=== PATIENT | female | born 1985 | race Caucasian/White ===

== ENCOUNTER 2017-01-23 20:57 | Emergency (ER) | payer OTHER ==
[2017-01-24 00:48] LABS: Hematocrit 41 % (35-47); Hemoglobin 13.8 g/dl (12.0-16.0); Mean Corpuscular HGB Conc 34 g/dl (31-36); Mean Corpuscular Hemoglobin 30 pg (27-31); Mean Corpuscular Volume 87 fL (80-97); Mean Platelet Volume 8 um3 (7.4-10.4); Red Blood Count 4.68 10^6/ul (4.0-5.4); Red Cell Distribution Width 14 % (10.5-15); White Blood Count 12.1 10^3/ul (3.5-10.8)
--- NOTE | 2017-01-24 00:51 | ED ---
I, Oh,Funmilayo, scribed for Stuart Dillon MD on 01/24/17 at 0015 . Throat Pain/Nasal Congestion - HPI Summary HPI Summary: This 32 y/o female presents to ED for sinus pain since yesterday. Positive lightheaded dizziness that is worse with sitting/standing up. Pt took some unspecified OTC "cold and cough" medications without much relief. PMHx includes recurrent sinus infection, but pt states that she hasn't had it "for a few years ". - History of Current Complaint Chief Complaint: EDGeneral Time Seen by Provider: 01/24/17 00:01 Hx Obtained From: Patient, Medical Records Onset/Duration: Gradual Onset Associated Signs And Symptoms: Positive: Sinus Discomfort Cough: None - Allergies/Home Medications Allergies/Adverse Reactions: Allergies Allergy/AdvReac Type Severity Reaction Status Date / Time Bupropion [From Wellbutrin] Allergy Hives Verified 01/23/17 21:04 PMH/Surg Hx/FS Hx/Imm Hx Endocrine/Hematology History: Denies: Hx Diabetes, Hx Thyroid Disease Cardiovascular History: Denies: Hx Hypertension - being monitored 140's Respiratory History: Denies: Hx Asthma, Hx Chronic Obstructive Pulmonary Disease (COPD) GI History: Denies: Hx Ulcer - Immunization History Date of Tetanus Vaccine: utd Date of Influenza Vaccine: none Infectious Disease History: No Infectious Disease History: Denies: Hx Clostridium Difficile, Hx Hepatitis, Hx Human Immunodeficiency Virus (HIV), Hx of Known/Suspected MRSA, Hx Shingles, Hx Tuberculosis, Hx Known/ Suspected VRE, Hx Known/Suspected VRSA, History Other Infectious Disease, Traveled Outside the [place] in Last 30 Days - Family History Known Family History: Positive: Cardiac Disease, Hypertension, Diabetes - Social History Alcohol Use: Rare Substance Use Type: Reports: None Smoking Status (MU): Never Smoked Tobacco Have You Smoked in the Last Year: No Review of Systems Negative: Fever Positive: Other - sinus pain Neurological: Other - Positive for dizziness All Other Systems Reviewed And Are Negative: Yes Physical Exam Triage Information Reviewed: Yes Vital Signs On Initial Exam: Initial Vitals Temp Pulse Resp BP Pulse Ox 96.7 F 84 16 132/89 98 01/23/17 21:05 01/23/17 21:05 01/23/17 21:05 01/23/17 21:05 01/23/17 21:05 Vital Signs Reviewed: Yes Appearance: Positive: Well-Appearing, No Pain Distress Skin: Positive: Warm Head/Face: Positive: Normal Head/Face Inspection Eyes: Positive: EOMI, CHAPO ENT: Positive: Hearing grossly normal Neck: Positive: Supple Respiratory/Lung Sounds: Positive: Clear to Auscultation, Breath Sounds Present Cardiovascular: Positive: RRR Abdomen Description: Positive: Nontender, Soft Bowel Sounds: Positive: Present Musculoskeletal: Positive: Strength/ROM Intact Neurological: Positive: Alert, Oriented to Person Place, Time - [place] Coma Scale Coma Scale Total: 15 Diagnostics - Vital Signs Vital Signs Temp Pulse Resp BP Pulse Ox 01/23/17 21:05 96.7 F 84 16 132/89 98 - Laboratory Result Diagrams: 01/24/17 00:27 01/24/17 00:27 Lab Statement: Any lab studies that have been ordered have been reviewed, and results considered in the medical decision making process. EENT Course/Dx - Course Assessment/Plan: This 32 y/o female presents to ED for sinus "pain" discomfort and orthostatic dizziness since yesterday. PMHx does include recurrent sinusitis that pt hasn't had for last few years. Bloodwork is unremarkable except for elevated WBC of 12.1. Pt was given pseudoephedrine tab in ED. Pt is discharged with dx of sinusitis. - Diagnoses Provider Diagnoses: Sinusitis Discharge - Discharge Plan Condition: Stable Disposition: HOME Prescriptions: Pseudoephedrine TAB* [Sudafed TAB*] 60 mg PO BID #20 tab Patient Education Materials: Sinusitis (ED), Pseudoephedrine (By mouth) Referrals: Nataliia Marcano MD [Primary Care Provider] - 2 Days The documentation as recorded by the Paul cortez Soohyun accurately reflects the service I personally performed and the decisions made by , Stuart Dillon MD.
[2017-01-24 01:03] LABS: Albumin 3.6 g/dL (3.2-5.2); BUN/Creatinine Ratio 9.6 (8-20); Calcium 9.1 mg/dL (8.6-10.3); EGFR African American 118.8 (>60); EGFR Non-African American 92.4 (>60); Globulin 3.6 g/dL (2-4); Potassium 3.9 mmol/L (3.5-5.0); Total Bilirubin 0.4 mg/dL (0.2-1.0); Total Protein 7.2 g/dL (6.4-8.9)
[2017-01-24] MEDS ORDERED: Pseudoephedrine TAB* 30 MG PO ONE (01:09)
[2017-01-24 01:37] VITALS: BP 117/67
== END 2017-01-24 01:36 | disposition home or self-care (01) ==
LOC: ED 20:57
DX: J32.9 Chronic sinusitis, unspecified (principal); R42 Dizziness and giddiness
CPT/HCPCS: 36415; 80053; 85025; 99282; A9270-GY

== ENCOUNTER 2018-10-10 20:04 | Emergency (ER) | payer OTHER ==
[2018-10-10 20:16] VITALS: BP 132/94
--- NOTE | 2018-10-10 21:25 | UC ---
Throat Pain/Nasal Lizandro HPI - HPI Summary HPI Summary: 33-year-old female presents with onset of tenderness to the bridge of her nose yesterday. Denies any injury. States she does notice some pressure when she bends over. Denies fever, chills, congestion, nasal discharge, ear pain, sore throat, or cough. - History of Current Complaint Chief Complaint: UCGeneralIllness Stated Complaint: POSSIBLE SINUS INFECTION Time Seen by Provider: 10/10/18 21:10 Hx Obtained From: Patient Hx Last Menstrual Period: 3 months Pain Intensity: 6 - Allergies/Home Medications Allergies/Adverse Reactions: Allergies Allergy/AdvReac Type Severity Reaction Status Date / Time bupropion [From Wellbutrin] Allergy Hives Verified 10/10/18 20:16 PMH/Surg Hx/FS Hx/Imm Hx Previously Healthy: Yes - Denies significant PMH - Surgical History Surgical History: None - Family History Known Family History: Positive: None, Cardiac Disease, Hypertension, Diabetes - Social History Occupation: Employed Full-time Lives: With Family Alcohol Use: Rare Substance Use Type: None Smoking Status (MU): Never Smoked Tobacco Have You Smoked in the Last Year: No - Immunization History Most Recent Influenza Vaccination: fall 2014 Review of Systems All Other Systems Reviewed And Are Negative: Yes Constitutional: Negative: Fever, Chills Skin: Negative: Rash, Bruising Eyes: Negative: Drainage, Eye Redness ENT: Negative: Sore Throat, Ear Ache, Nasal Discharge, Sinus Congestion, Sinus Pain/Tenderness Respiratory: Negative: Shortness Of Breath, Cough Cardiovascular: Negative: Palpitations, Chest Pain Gastrointestinal: Positive: Negative Genitourinary: Positive: Negative Musculoskeletal: Positive: Negative Neurological: Positive: Negative Is Patient Immunocompromised?: No Physical Exam - Summary Physical Exam Summary: GENERAL APPEARANCE: Well developed, well nourished, alert and cooperative, and appears to be in no acute distress. HEAD: Atraumatic. normocephalic. EYES: Conjunctiva clear. No drainage. EARS: External auditory canals and tympanic membranes clear, hearing grossly intact. NOSE: Mild erythema and edema of nasal mucosa. No nasal discharge. Mild tenderness over bridge of nose without erythema, ecchymosis, swelling, or deformity. No frontal or maxillary sinus tenderness. THROAT: Pharynx normal. No tonsilar inflammation, swelling, exudate, or lesions. Uvula midline. Oral cavity normal. Teeth and gingiva in good general condition. NECK: Neck supple, non-tender without lymphadenopathy. CARDIAC: Normal S1 and S2. No S3, S4 or murmurs. Rhythm is regular. There is no peripheral edema, cyanosis or pallor. Extremities are warm and well perfused. Capillary refill is less than 2 seconds. Peripheral pulses intact. LUNGS: Clear to auscultation without rales, rhonchi, wheezing or diminished breath sounds. ABDOMEN: Positive bowel sounds. Soft, nondistended, nontender. No guarding or rebound. No masses or hepatosplenomegally. MUSKULOSKELETAL: ROM intact to all extremities. No joint erythema or tenderness. Normal muscular development. Normal gait. SKIN: Skin normal color, texture and turgor with no lesions or eruptions. Triage Information Reviewed: Yes Vital Signs: Initial Vital Signs Temp 98.0 F 10/10/18 20:12 Pulse 83 10/10/18 20:12 Resp 18 10/10/18 20:12 BP 132/94 10/10/18 20:12 Pulse Ox 100 10/10/18 20:12 Vital Signs Reviewed: Yes Throat Pain/Nasal Course/Dx - Course Course Of Treatment: 33-year-old female presents with onset of tenderness to the bridge of her nose yesterday. Denies any injury. States she does notice some pressure when she bends over. Denies fever, chills, congestion, nasal discharge, ear pain, sore throat, or cough. Afebrile. Vital signs stable. Exam was overall unremarkable except for some mild tenderness with palpation over the bridge of her nose. Discussed with patient that this could represent an early sinusitis although I am not convinced that this is the cause. Recommending symptomatic treatment for sinusitis at this time. She is to return here or follow up with her primary care provider if symptoms do not improve. Anticipatory guidance and warning symptoms are reviewed with the patient. Verbalizes understanding and agrees with plan of care. - Differential Dx/Diagnosis Differential Diagnosis/HQI/PQRI: Sinusitis, URI Provider Diagnosis: Sinusitis Discharge - Sign-Out/Discharge Documenting (check all that apply): Patient Departure All imaging exams completed and their final reports reviewed: No Studies - Discharge Plan Condition: Stable Disposition: HOME Prescriptions: Fluticasone NASAL SPRAY 50MCG* [Flonase NASAL SPRAY 50MCG*] 2 spray BOTH NARES DAILY #1 btl Patient Education Materials: Sinusitis (ED) Referrals: Nataliia Marcano MD [Primary Care Provider] - 5 Days Additional Instructions: I do not see a clear cause of your symptoms although they may be from a sinus infection. Sinus infections without fever are most often caused by a viral infection. Viral infections do not respond to antibiotics and are limited to the treatment of symptoms. Viral infections typically run their course in 7-10 days. Drink plenty of fluids to avoid dehydration especially if you are running any fever. Use a saline rinse kit such as Neti Pot or NeilMed at least twice a day to help thin secretions and promote drainage of the sinuses. Use fluticasone (Flonase) nasal spray 2 sprays each nostril once daily. Take over the counter acetaminophen (Tylenol) or ibuprofen (Advil, Motrin) according to directions as needed for pain or fever. Return here or follow up with your primary care provider in 5 days if symptoms persist. Seek immediate medical attention in the emergency room if you have fever greater than 100.5 F despite taking acetaminophen or ibuprofen, have chest pain , difficulty breathing, are unable to swallow, or have any worsening of symptoms. - Billing Disposition and Condition Condition: STABLE Disposition: Home
== END 2018-10-10 21:43 | disposition home or self-care (01) ==
LOC: UCEAST 20:04
DX: J32.9 Chronic sinusitis, unspecified (principal); Z88.8 Allergy status to other drugs, medicaments and biological substances
CPT/HCPCS: 99212; G0463

== ENCOUNTER 2018-11-25 12:46 | Emergency (ER) | payer OTHER ==
--- NOTE | 2018-11-25 12:50 | UC ---
Throat Pain/Nasal Lizandro HPI - HPI Summary HPI Summary: 33 yo female presents with sore throat for the last 2 days. She has been taking judy-selzter OTC with little relief. She is able to eat and drink, but states that it hurts when she swallows. No known exposure to strep that she is aware of. Denies fever, chills, sinus symptoms, cough, rash. - History of Current Complaint Stated Complaint: SORE THROAT Time Seen by Provider: 11/25/18 12:50 Hx Obtained From: Patient Hx Last Menstrual Period: 3 months Onset/Duration: Sudden Onset Severity: Moderate Pain Intensity: 4 Pain Scale Used: 0-10 Numeric - Allergies/Home Medications Allergies/Adverse Reactions: Allergies Allergy/AdvReac Type Severity Reaction Status Date / Time bupropion [From Wellbutrin] Allergy Hives Verified 11/25/18 12:57 Home Medications: Home Medications Desogestrel-Ethinyl Estradiol [Enskyce 28 Tablet] 1 each PO 11/25/18 [History] PMH/Surg Hx/FS Hx/Imm Hx - Additional Past Medical History Additional PMH: None - Surgical History Surgical History: None - Family History Known Family History: Positive: Cardiac Disease, Hypertension, Diabetes - Social History Occupation: Employed Full-time Lives: With Family Alcohol Use: Rare Substance Use Type: None Smoking Status (MU): Never Smoked Tobacco Have You Smoked in the Last Year: No - Immunization History Most Recent Influenza Vaccination: fall 2014 Review of Systems All Other Systems Reviewed And Are Negative: Yes Constitutional: Positive: Negative Skin: Positive: Negative Eyes: Positive: Negative ENT: Positive: Sore Throat Respiratory: Positive: Negative Cardiovascular: Positive: Negative Gastrointestinal: Positive: Negative Neurovascular: Positive: Negative Neurological: Positive: Negative Psychological: Positive: Negative Physical Exam - Summary Physical Exam Summary: GENERAL: NAD. WDWN. No pain distress. SKIN: No rashes, sores, lesions, or open wounds. HEENT: Head: AT/NC Eyes: EOM intact. Conjunctiva clear without inflammation or discharge. Ears: Hearing grossly normal. TMs intact, no bulging, erythema, or edema. Nose: Nasal mucosa pink and moist. NTTP maxillary and frontal sinus. Throat: Posterior oropharynx very mild erythema. No exudates or tonsillar enlargement. Uvula midline. NECK: Supple. Nontender. No lymphadenopathy. CHEST: CTAB. No r/r/w. No accessory muscle use. Breathing comfortably and in no distress. CV: RRR. Without m/r/g. Pulses intact. Cap refill <2seconds NEURO: Alert. PSYCH: Age appropriate behavior. Triage Information Reviewed: Yes Vital Signs: Vital Signs: Temp Pulse Resp BP Pulse Ox 98.7 F 84 18 128/86 100 11/25/18 12:54 11/25/18 12:54 11/25/18 12:54 11/25/18 12:54 11/25/18 12:54 Laboratory Tests 11/25/18 13:02 Group A Strep Rapid Negative Vital Signs Reviewed: Yes Throat Pain/Nasal Course/Dx - Course Course Of Treatment: POC strep negative. Suspect viral sore throat. Advised to try warm salt water gargles and ibuprofen for discomfort. Will also rx for lidocaine viscous for discomfort. - Differential Dx/Diagnosis Provider Diagnosis: Sore throat Discharge - Sign-Out/Discharge Documenting (check all that apply): Patient Departure All imaging exams completed and their final reports reviewed: No Studies - Discharge Plan Condition: Stable Disposition: HOME Prescriptions: Lidocaine 2% VISCOUS* [Xylocaine 2% Viscous*] 10 ml SWISH SWAL Q6H PRN #100 ml PRN Reason: Pain Patient Education Materials: Pharyngitis (ED) Referrals: Nataliia Marcano MD [Primary Care Provider] - Additional Instructions: If you develop a fever, shortness of breath, chest pain, new or worsening symptoms - please call your PCP or go to the ED immediately. - Billing Disposition and Condition Condition: STABLE Disposition: Home
[2018-11-25 12:57] VITALS: BP 128/86
== END 2018-11-25 13:15 | disposition home or self-care (01) ==
LOC: UCEAST 12:46
DX: J02.9 Acute pharyngitis, unspecified (principal)
CPT/HCPCS: 87651; 99212; G0463

== ENCOUNTER 2019-03-24 07:30 | Emergency (ER) | payer OTHER ==
[2019-03-24 07:42] VITALS: BP 160/98
--- NOTE | 2019-03-24 08:11 | UC ---
Complaint Female HPI - HPI Summary HPI Summary: 2 evenings ago patient started feeling itching in vaginal area. today itch persists and is getting burning feeling as well. has applied hydrocortisone cream to labia over past 2 days w/o relief. denies vaginal d/c, pain or odor. denies change in personal care items. she does work out in a gym and has been sweaty which she feels may have started the itching. She denies urinary symps. no concern for STI, denies abdominal pain - History Of Current Complaint Chief Complaint: UCGU Stated Complaint: PERSONAL Time Seen by Provider: 03/24/19 08:02 Hx Obtained From: Patient Hx Last Menstrual Period: [id number] ?: No Onset/Duration: Gradual Onset Timing: Constant Severity Initially: Mild Severity Currently: Moderate Pain Intensity: 8 Aggravating Factor(s): Other - touch Alleviating Factor(s): Nothing Associated Signs And Symptoms: Positive: Negative. Negative: Fever, Vaginal Bleeding/Discharge, Genital Blisters Related Hx: Similar Episode/Dx as: - yeast infection - Allergies/Home Medications Allergies/Adverse Reactions: Allergies Allergy/AdvReac Type Severity Reaction Status Date / Time bupropion [From Wellbutrin] Allergy Hives Verified 03/24/19 07:43 Home Medications: Home Medications Ibuprofen TAB* [Motrin TAB* 600 MG] 600 mg PO Q6H 03/24/19 [History Confirmed ] PMH/Surg Hx/FS Hx/Imm Hx Previously Healthy: Yes - Surgical History Surgical History: None - Family History Known Family History: Positive: None, Cardiac Disease, Hypertension, Diabetes - Social History Occupation: Employed Full-time - assembly riveter Lives: With Family Alcohol Use: Rare Substance Use Type: None Smoking Status (MU): Never Smoked Tobacco Have You Smoked in the Last Year: No - Immunization History Most Recent Influenza Vaccination: fall 2014 Review of Systems All Other Systems Reviewed And Are Negative: Yes Constitutional: Positive: Negative Respiratory: Positive: Negative Cardiovascular: Positive: Negative Genitourinary: Positive: Vaginal/Penile Burning, Vaginal/Penile Itching. Negative: Dysuria, Hematuria, Frequency Neurological: Positive: Negative Psychological: Positive: Negative Is Patient Immunocompromised?: No Physical Exam Triage Information Reviewed: Yes Appearance: Well-Appearing, No Pain Distress, Well-Nourished Vital Signs: Initial Vital Signs Temp 98.0 F 03/24/19 07:34 Pulse 90 03/24/19 07:34 Resp 18 03/24/19 07:34 BP 160/98 03/24/19 07:34 Pulse Ox 100 03/24/19 07:34 Vital Signs Reviewed: Yes Respiratory Exam: Normal Respiratory: Positive: Lungs clear Cardiovascular Exam: Normal Cardiovascular: Positive: RRR Abdominal Exam: Normal Abdomen Description: Positive: Nontender, No Organomegaly, Soft Pelvic Exam: Positive: Other - labia minora and introitus inflammed, no d/c, no lesions noted. Negative: Active Bleeding, Discharge, Lesions Neurological Exam: Normal Neurological: Positive: Alert Psychological Exam: Normal Complaint Female Dx - Differential Dx/Diagnosis Differential Diagnosis/HQI/PQRI: Sexually Transmitted Disease, Urinary Tract Infection, Other - vaginitis Provider Diagnosis: Vaginitis Discharge ED - Sign-Out/Discharge Documenting (check all that apply): Patient Departure All imaging exams completed and their final reports reviewed: No Studies - Discharge Plan Condition: Good Disposition: HOME Prescriptions: Fluconazole 150 MG TAB* [Diflucan 150 MG TAB*] 150 mg PO ONCE #2 tablet Patient Education Materials: Yeast Infection (ED) Referrals: Nataliia Marcano MD [Primary Care Provider] - 3 Days (if no better) Additional Instructions: use diflucan as directed may apply anti-fungal or anti-yeast cream as directed for comfort return if symptoms worsen at any time - Billing Disposition and Condition Condition: GOOD Disposition: Home
== END 2019-03-24 08:20 | disposition home or self-care (01) ==
LOC: UCEAST 07:30
DX: N76.0 Acute vaginitis (principal); Z88.8 Allergy status to other drugs, medicaments and biological substances
CPT/HCPCS: 81003; 84702; 99202; G0463